=== PATIENT | female | born 1960 | race Caucasian/White ===

== ENCOUNTER → 2022-09-01 10:11 | Outpatient (BNVA) | payer MEDICARE, MEDICAID, SELFPAY | PROVIDERS: PCP Family Medicine; Visit Provider Physician Assistant | DX: M53.3 Sacrococcygeal disorders, not elsewhere classified (principal); G89.29 Other chronic pain | CPT/HCPCS: 99202 ==

== ENCOUNTER → 2022-10-11 11:15 | Outpatient (BNVA) | payer MEDICARE, MEDICAID, SELFPAY | PROVIDERS: PCP Family Medicine; Visit Provider Anesthesiology | DX: G89.4 Chronic pain syndrome (principal); M53.3 Sacrococcygeal disorders, not elsewhere classified; Z79.891 Long term (current) use of opiate analgesic; Z98.1 Arthrodesis status | CPT/HCPCS: 99202 ==

== ENCOUNTER 2022-12-18 13:53 | Outpatient (AMB) | payer MEDICARE, MEDICAID, SELFPAY ==
--- NOTE | 2022-12-18 13:56 | MHC.OFFVIS ---
Intake Vital Signs 12/18/22 13:57 Height 5 ft 9 in Weight 258 lb BMI 38.1 BP 108/60 Blood Pressure Location Lt brachial Position Sitting Respiration 16 Pulse 84 Pulse Source Pulse Oximeter Pulse Oximetry (%) 97 Oxygen Delivery Method Room Air Intake Visit Reasons: Pain Pump Procedure Discussion Allergies Penicillins Allergy (Severe, Verified 12/18/22 14:03) Anxiety citalopram Allergy (Intermediate, Verified 12/18/22 14:03) Confusion codeine Allergy (Intermediate, Verified 12/18/22 14:03) Stomach Upset duloxetine [From Cymbalta] Allergy (Intermediate, Verified 12/18/22 14:03) Vomiting gabapentin Allergy (Intermediate, Verified 12/18/22 14:03) Confusion levofloxacin [From Levaquin] Allergy (Intermediate, Verified 12/18/22 14:03) Vomiting meloxicam [From Mobic] Allergy (Intermediate, Verified 12/18/22 14:03) Vomiting nabumetone Allergy (Intermediate, Verified 12/18/22 14:03) Diarrhea prednisone Allergy (Intermediate, Verified 12/18/22 14:03) Insomnia tramadol [From Ultram] Allergy (Intermediate, Verified 12/18/22 14:03) Vomiting vancomycin Allergy (Intermediate, Verified 12/18/22 14:03) Swelling atorvastatin [From Lipitor] Allergy (Mild, Verified 12/18/22 14:03) Swelling lamotrigine Allergy (Mild, Verified 12/18/22 14:03) Dizziness trazadone Adverse Reaction (Mild, Uncoded 09/01/22 10:32) Fatigued HPI HPI Comments History of Present Illness Details Nathalia is again in my office and again prolonged and difficult conversation ensued. The patient was evaluated by psychology and she was found to be appropriate to do intrathecal drug delivery system pain pump. She is on exuberant doses of the opioid medications therefore I gave her options of the trials. I offered her to stop all her medications for few days and have opioid trial versus try nonopioid medications 1st. I offered her Prialt, baclofen, bupivacaine, clonidine. I described her side effects and complications of the each medication. She is very hesitant to consider which medication she would go with the trial, she would like to research intrathecal medications on her own. Meanwhile she is asking me to try oral baclofen to relieve spastic sensations in her bilateral lower extremities. I started her on baclofen 10 mg t.i.d.. She will give me a call and we will make the decision known to us. After that we will schedule her for the trial. . Prior: 61 years old female who presented in my office with a referral from neuro surgery.? She reports pain on the lower back on the left side as well as numbness sensation in bilateral feet.? She reports that her pain condition started in 2003 when she fell down on stairs at home.? Evaluation and cause of her pain was established as sacroiliitis.? Since then patient was through many different facilities and many different modalities to treat her pain.? She had physical therapy and pool therapy to treat this pain she went for chiropractic manipulation and was treated with 5 different chiropractors, she reported all of them increase her pain.? She had to apply for disability because of her pain.? She had after that several attempts of physical therapy.? She had about 20 steroid injections in [facility] and [place] apparently those injections were done to her right hip.? 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 in 2015.? She had spinal cord stimulator trial and implantation at [facility] it was removed 1 year after a insertion.? She had SI joint fusion formed in 2016 and was diagnosed with failed the side fusion she had revision of the SI joint fusion in 2017 2018 and removal of spinal cord stimulator.? She tried cryotherapy for her pain.? She tried psychotherapy for her pain including cognitive behavioral therapy and coping techniques for pain.? Through those years she remained on high doses of the opioid medications.? Originally she was on 75 micro g of fentanyl patch and 120 mg of oxycodone a day.? She reported that she was very comfortable on that dosage of the opioids.? She insisted on that this does was started on her after fusion surgery.? Currently she is under care of primary care physician who is prescribing her a taper of the opioids because she is uncomfortable to prescribe her current doses. Her past medical history significant for AFib dysrhythmia ovarian cyst and menstrual dysfunction.? Her past surgical history significant for SI joint fusion 2017 in 2018.? Hip replacement in 2015.? Hospitalized for pain in August of 2022. Review of Systems Const All systems reviewed & are unremarkable except as noted in HPI and below ENT Reports Normal hearing present Neuro Reports Normal hearing present, Denies Abnormal speech present, Denies confusion and Denies Sensory deficit (Neuro) Psych Denies confusion Physical Exam Vital Signs: Last Vital Signs Pulse 84 12/18/22 13:57 Resp 16 12/18/22 13:57 BP 108/60 12/18/22 13:57 Pulse Ox 97 12/18/22 13:57 Oxygen Delivery Method Room Air 12/18/22 13:57 BMI result Body Mass Index 38.1 Const General: no acute distress; No confusion Nutritional Appearance: obese morbidly obese Orientation/consciousness: patient oriented x3 and No confusion Eyes General: appearance normal, both eyes and all related structures Pupils: Equal, round and reactive pupils present EOM: EOMs intact bilaterally Neck Neck: Yes full ROM Chest Chest palpation & inspection: normal inspection of the chest Resp Effort & Inspection: normal respiratory effort, able to speak in complete sentences, normal respiratory pattern, no audible wheezes and no cough Cardio Jugular venous distension: no JVD GI Inspection: Yes normal to inspection Back/Spine/Pelvis Other: She has extensive scars in the projection of left sacroiliac joint evident of previous fusion. Neuro General: patient oriented x3, gait normal and No confusion Cranial nerves: Yes CN's II-XII intact bilaterally, Yes Equal, round and reactive pupils present, Yes Normal hearing present and Yes Ability to bilaterally elevate shoulders present Speech: No Abnormal speech present Gait exam (Neuro): Normal gait present Motor exam (neuro): 5/5 motor strength present throughout Sensory Exam: No Sensory deficit (Neuro) Extrem General: No pedal edema Psych Speech and movement: Normal speech and movement present Affect: normal affect Attitude: cooperative Thought process: Normal thought process present Thought content: Normal thought content present Insight: Good insight present (Psych) Judgement: Good judgement present (Psych) Assessment & Plan Assessment & Plan (1) Chronic SI joint pain: Code(s): M53.3 - Sacrococcygeal disorders, not elsewhere classified; G89.29 - Other chronic pain (2) Status post fusion of sacroiliac joint: Code(s): Z98.1 - Arthrodesis status (3) Chronic pain syndrome: Code(s): G89.4 - Chronic pain syndrome (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 Most likely this is the source of her pain due to opioid induced hyperalgesia. There is no evidence of hardware fracture. She admitted herself that she was started on exuberant doses of the opioid medications immediately after 1st SI joint fusion. She went for psychological evaluation and she was approved for the trial. I will start her on baclofen on her request. I will be waiting for her to make a decision which medication she would like to go for with the trial. 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
[2022-12-18 13:57] VITALS: BP 108/60; PULSE 84; RESP 16; O2SAT 97; BMI 38.1
== END 2022-12-18 14:42 | disposition home or self-care (01) ==
PROVIDERS: PCP Family Medicine; Visit Provider Anesthesiology
DX: G89.4 Chronic pain syndrome (principal); M53.3 Sacrococcygeal disorders, not elsewhere classified; Z98.1 Arthrodesis status; Z79.891 Long term (current) use of opiate analgesic
CPT/HCPCS: 99214

== ENCOUNTER → 2022-12-18 13:53 | Outpatient (BNVA) | payer MEDICARE, MEDICAID, SELFPAY | PROVIDERS: PCP Family Medicine; Visit Provider Anesthesiology | DX: M53.3 Sacrococcygeal disorders, not elsewhere classified (principal); G89.4 Chronic pain syndrome; Z98.1 Arthrodesis status; Z79.891 Long term (current) use of opiate analgesic | CPT/HCPCS: 99212 ==

== ENCOUNTER 2023-01-26 09:03 | Emergency (ER) | payer MEDICARE, MEDICAID, SELFPAY ==
--- NOTE | ~2023-01-26 | MR_ITS ---
MR LUMBAR SPINE WITHOUT CONTRAST CLINICAL INFORMATION: Increased pain. Incontinence of stool. Rule out cauda equina. COMPARISON: Lumbar spine MRI 02/06/2018. TECHNIQUE: MRI of the lumbar spine was obtained using routine sequences without contrast. FINDINGS: There are 5 nonrib-bearing lumbar-type vertebral bodies. There is grade 1 anterolisthesis of L4 on L5. Lumbar alignment is otherwise maintained. The vertebral body heights are preserved. There is moderate to severe disc volume loss at L3-L4 and there is moderate disc volume loss at L5-S1. There are multilevel endplate osteophytes. There are Modic type I and Modic type II endplate signal changes at L3-L4 and there are Modic type II endplate signal changes at L4-L5. Modic type I endplate signal changes at T12-L1. Conus terminates at the L1 level. Small simple left renal cyst for which no further imaging follow-up is warranted. There is paraspinal muscular atrophy bilaterally. There are left SI joint screws. L1-L2: Disc contour is normal. No central canal stenosis and no foraminal stenosis. L2-L3: There is a diffuse annular disc bulge and there is moderate bilateral facet arthropathy and ligamentum flavum thickening. There is no central canal stenosis and there is no foraminal stenosis. L3-L4: Diffuse annular disc bulge the superimposed similar right paracentral disc protrusion that compresses the traversing right L4 nerve root within the right subarticular zone and that results in mild to moderate central canal stenosis. A left lateral disc osteophyte protrusion results in similar mass effect on the extraforaminal left L3 nerve root. L4-L5: Slight grade 1 anterolisthesis. Severe bilateral hypertrophic facet arthropathy. Diffuse disc osteophyte complex. Previously seen central disc protrusion has nearly completely resorbed. Disc osteophyte and facet arthropathy result in similar moderate bilateral foraminal stenosis with mild mass effect on the exiting nerve roots bilaterally. L5-S1: Diffuse disc osteophyte complex and moderate bilateral facet arthropathy. Disc osteophyte contacts the extraforaminal L5 nerve roots bilaterally which is unchanged. MR/MR lumbar spine wo con IMPRESSION: - At L3-L4, there is a similar right paracentral disc protrusion that compresses the traversing right L4 nerve root within the right subarticular zone and that results in mild to moderate central canal stenosis. A left lateral disc osteophyte protrusion results in similar mass effect on the extraforaminal left L3 nerve root. - At L4-L5, the previously seen central disc protrusion has nearly completely resorbed. Grade 1 anterolisthesis and multifactorial degenerative changes at L4-L5 result in similar moderate bilateral foraminal stenosis with mild mass effect on the exiting nerve roots bilaterally. - At L5-S1, a diffuse disc osteophyte complex contacts the extraforaminal L5 nerve roots bilaterally which is unchanged.
--- NOTE | ~2023-01-26 | XR_ITS ---
EXAMINATION: XR SACROILIAC JOINTS CLINICAL INFORMATION: Fall, increased pain COMPARISON: None available. TECHNIQUE: 3 views of the sacroiliac joints FINDINGS: Fixating hardware left SI joint. Asymmetric inferior right SI sclerosis. Partial visualization right total hip replacement. Left hip joint without significant narrowing. Bony pelvis appears intact. Degenerative changes lower lumbar spine. XR/XR sacroiliac joint min 3V IMPRESSION: No acute bony pathology. Asymmetric inferior right SI sclerosis.
[2023-01-26 09:05] VITALS: BP 130/63; PULSE 85; RESP 18; TEMP 36.9; O2SAT 96; BMI 35.4
--- NOTE | 2023-01-26 10:16 | ED.GENADULT ---
HPI - General Adult General Chief complaint: General Medical Stated complaint: SI Joint Pain Time Seen by Provider: 01/26/23 10:04 Source: patient Mode of arrival: ambulatory Limitations: no limitations History of Present Illness HPI narrative: Patient is a 62-year-old female with history of chronic SI joint pain, failed SI joint fusion currently on 20mg oxycodone and a 75mcg fentanyl patch followed by pain management presenting to the emergency department with complaint of acute exacerbation of SI joint pain. States pain is radiating down right leg and reports right leg is numb. Reports one episode of bowel incontinence last night. Last saw pain management on 12/18 at which time she was started on Baclofen. Patient states she is not currently taking this as she feels it increased her pain. She reports a fall approximately 1.5 months ago with increased pain since that time and denies imaging following that injury. Denies fevers. Denies dysuira, urinary frequency, or other urinary symptoms. Patient specifically requesting admission for pain control. MD complaint: back pain Onset (ago): week(s) Location: back Radiation: extremity Severity: severe Severity scale (1-10): >10 Quality: burning Pain Consistency: constant Relieving factors: none Exacerbating factors: movement Associated symptoms: other (Paresthesias, bowel incontinence) Treatments prior to arrival: other (Oxycodone, fentanyl) Related Data Home Medications Medication Instructions Recorded Confirmed diltiazem HCl 180 mg mg PO 09/01/22 capsule,extended release 24 hr fentanyl 75 mcg/hr transdermal topical 09/01/22 patch metoprolol succinate 200 mg mg PO 09/01/22 tablet,extended release 24 hr omeprazole 20 mg capsule,delayed mg PO 09/01/22 release oxycodone 20 mg tablet mg PO 09/01/22 pravastatin 80 mg tablet mg PO 09/01/22 Previous Rx's Medication Instructions Recorded baclofen 10 mg tablet 10 mg PO TID 30 days #90 tabs 12/18/22 Allergies Allergy/AdvReac Type Severity Reaction Status Date / Time Penicillins Allergy Severe Anxiety Verified 12/18/22 14:03 citalopram Allergy Intermediate Confusion Verified 12/18/22 14:03 codeine Allergy Intermediate Stomach Verified 12/18/22 14:03 Upset duloxetine [From Cymbalta] Allergy Intermediate Vomiting Verified 12/18/22 14:03 gabapentin Allergy Intermediate Confusion Verified 12/18/22 14:03 levofloxacin [From Levaquin] Allergy Intermediate Vomiting Verified 12/18/22 14:03 meloxicam [From Mobic] Allergy Intermediate Vomiting Verified 12/18/22 14:03 nabumetone Allergy Intermediate Diarrhea Verified 12/18/22 14:03 prednisone Allergy Intermediate Insomnia Verified 12/18/22 14:03 tramadol [From Ultram] Allergy Intermediate Vomiting Verified 12/18/22 14:03 vancomycin Allergy Intermediate Swelling Verified 12/18/22 14:03 atorvastatin [From Lipitor] Allergy Mild Swelling Verified 12/18/22 14:03 lamotrigine Allergy Mild Dizziness Verified 12/18/22 14:03 trazadone AdvReac Mild Fatigued Uncoded 09/01/22 10:32 Review of Systems Review of Systems: As per HPI. Yes all other systems are reviewed and are negative Constitutional: Constitutional: Reports as per HPI [facility] Social History Social History Smoked in Last 30 Days: No Use of substances other than those prescribed or required for medical reasons: No Advance Directives: No Advance Directives Information Provided: Yes Physical Exam ED Vital Signs: Vital Signs - 24 hr 01/26/23 09:05 01/26/23 11:01 01/26/23 13:47 Temperature 98.4 F Pulse Rate 85 67 78 Respiratory Rate 18 20 18 Blood Pressure 130/63 145/86 H 137/83 Pulse Oximetry 96 97 98 Oxygen Delivery Method Room Air Room Air Room Air BMI result Body Mass Index 35.4 Vital signs have been reviewed and appear to be correct. Blood pressure normal. Heart rate normal. Respiratory rate normal. Temperature normal. Oxygen saturation normal. Const General: cooperative, healthy appearing and no acute distress Orientation/consciousness: oriented to person, oriented to place, oriented to time and patient oriented x3 Limitations: no limitations [facility] Head: Yes normocephalic and Yes atraumatic Ears: external ears normal General nose exam: Normal external nose present Face and sinus: Yes face symmetric Mouth: oropharynx normal and moist mucous membranes Throat: Yes uvula midline Eyes Pupils: Equal, round and reactive pupils present Neck Neck: Yes normal visual inspection, Yes no meningeal signs and Yes supple Resp Effort & Inspection: normal respiratory effort and able to speak in complete sentences Auscultation: clear to auscultation bilaterally Cardio Rate: regular rate Rhythm: regular rhythm Heart sounds: S1 normal heart sound present and S2 normal heart sound present GI Palpation (GI): Soft to palpation and nontender Auscultation: normoactive bowel sounds General: Yes no CVA tenderness Back/Spine/Pelvis Back: no CVA tenderness Cervical Spine: normal cervical lordosis and cervical ROM normal Thoracic/Lumbar Spine: Thoracic/lumbar spine scar(s), pain with thoraco-lumbar ROM, thoraco-lumbar ROM limited with forward flexion, with lateral flexion to the right, with lateral flexion to the left, with rotation to the right and with rotation to the left, lumbar spinal tenderness at L1, at L2, at L3, at L4 and at L5 and straight leg raise positive bilateral Sacroiliac joints: bilaterally tender to palpation Sacrum: no erythema, no swelling and tenderness midline Skin General skin exam: elasticity normal and turgor normal Neuro General: oriented to person, oriented to place, oriented to time, patient oriented x3, tone normal, moves all extremities, Normal light touch and pain sensation, no meningeal signs, no focal motor deficits, CN's II-XI intact bilaterally and deep tendon reflexes 2+ bilaterally Cranial nerves: Yes Equal, round and reactive pupils present Cognition (Neuro): normal cognition Motor exam (neuro): Abnormal motor strength present (2/5 strength will all ROM bilateral LEs) bilateral lower extremity Sensory Exam: Normal double simultaneous stimulation for sensation Extrem General: Yes full ROM, Yes no pedal edema and Yes no calf tenderness Psych Mental Status: mental status grossly normal Affect: normal affect Thought process: Normal thought process present Medications Administered Discontinued Medications Generic Name Dose Route Start Last Admin Trade Name Freq PRN Reason Stop Dose Admin Hydromorphone HCl 1 mg 01/26/23 10:27 01/26/23 10:59 Hydromorphone Hcl 1 Mg/Ml Syringe IVPUSH 01/26/23 10:28 1 mg ONCE ONE Administration Protocol Hydromorphone HCl 1 mg 01/26/23 11:44 01/26/23 11:54 Hydromorphone Hcl 1 Mg/Ml Syringe IVPUSH 01/26/23 11:45 1 mg ONCE ONE Administration Protocol Hydromorphone HCl 1 mg 01/26/23 13:19 01/26/23 13:50 Hydromorphone Hcl 1 Mg/Ml Syringe IVPUSH 01/26/23 13:20 1 mg ONCE ONE Administration Protocol Lorazepam 1 mg 01/26/23 13:55 01/26/23 14:23 Lorazepam 2 Mg/Ml Vial IVPUSH 01/26/23 13:56 1 mg ONCE ONE Administration Ondansetron HCl 4 mg 01/26/23 10:28 01/26/23 10:59 Ondansetron Hcl 4 Mg/2 Ml Vial IVPUSH 01/26/23 10:29 4 mg ONCE ONE Administration Medical Decision Making Medical Decision Making [facility] Narrative: Patient is a 62-year-old female with history of chronic SI joint pain, failed SI joint fusion currently on 20mg oxycodone and a 75mcg fentanyl patch followed by pain management presenting to the emergency department with complaint of acute exacerbation of SI joint pain. On exam patient is awake, A+Ox3, VS WNL, afebrile, normal neurological exam without focal deficits, diffuse tenderness over bilateral SI joints, . Given reported symptoms and physical exam findings, initial differential includes cord compression, cauda equina, avascular necrosis, harware fracture. Less likely spinal epidural abscess. Case discussed with Dr. Romero who agrees with plan for MRI. 11:44 Patient denies any relief of pain from Dilaudid, will order additional dose, MRI ordered. No leukocytosis, ESR and CRP are within normal limits. 12:00 RN reporting that when in room to perform MRI screening, patient stating she not be able to complete MRI due to claustrophobia. Reporting that she had an open MRI one month ago in [place], in unsure where, but that it was prior to her fall. States that she feels she would be able to complete MRI if medicated with Ativan prior. No acute pathology on x-ray. No evidence of infection on urinalysis. 13:55 received call from MRI but they are ready to take patient, lorazepam ordered No findings on MRI concerning for cord compression or cauda equina, patient updated on results. Patient continues to specifically request inpatient admission for pain control, states that her level of pain is interfering with her activities of daily living. Discussed case with hospitalist, Dr. Bragg, who feels that patient does not meet admission criteria. Patient offered PT eval and case management involvement which she declined. Spoke with patient's pain management provider, , who feels that patient's pain level is not an indication for admission, and that symptoms are likely related to opioid induced hyperalgesia as no acute cause of pain was determined in the ED today. Patient expresses frustration that she was previously on higher doses of opioid pain medications that worked well at controlling her pain levels and that her current primary care provider is not willing to prescribe those doses of medications. Discussed with patient the possibility of seeking a new primary care provider and patient provided with names of several area providers to contact. Patient is agreeable to discharge home and will work at contacting new potential primary care providers outpatient. Strict return precautions discussed with patient at bedside. Patient verbalized understanding of and agreement with plan. Differential Diagnosis Differential Diagnoses: The differential diagnosis associated with the presentation includes As per MDM. Admission/Observation Consideration of admission/observation: Escalation of care including admission/observation considered Consult Healthcare Provider Management of the patient was discussed with: Hospitalist (Dr. Bragg) and Residence Manager (Dr. Jack) Lab Data [facility] Lab Attestation statement: I reviewed the patient's lab results. As per MDM. 01/26/23 10:52 01/26/23 10:52 Labs: Lab Results 01/26/23 Range/Units 10:52 WBC 8.5 (4.8-10.8) X10*3/uL RBC 5.58 H (4.20-5.50) X10*6/uL Hgb 14.3 (12.0-16.0) g/dl Hct 45.5 (37.0-47.0) % MCV 81.5 (80.0-98.0) fL MCH 25.6 L (27.0-33.0) pg MCHC 31.4 (31.0-35.0) g/dl RDW 16.5 H (11.0-16.0) % Plt Count 213 (160-400) X10*3/uL MPV 9.9 (9.4-12.3) fL Immature Gran % (Auto) 0.2 (0.0-0.4) % Neut % (Auto) 70.0 (45-73) % Lymph % (Auto) 23.4 (20-40) % [place] % (Auto) 4.6 (2-11) % Eos % (Auto) 1.3 (0-4) % Baso % (Auto) 0.5 (0-2) % Lymph # (Auto) 2.0 (1.2-4.9) X10*3/uL [place] # (Auto) 0.4 (0.1-1.2) X10*3/uL Eos # (Auto) 0.1 (0.0-0.4) X10*3/uL Baso # (Auto) 0.0 (0.0-0.2) X10*3/uL Abs Immat Gran (auto) 0.02 (0.00-0.03) X10*3/uL Absolute Neuts (auto) 6.0 (2.0-8.3) x10*3/uL Absolute Nucleated RBC 0.000 (0.0-0.012) X10*3/uL Nucleated RBC % (auto) 0.0 (0.0-0.2) /100WBC ESR 10 (0-20) MM/HR Sodium 139 (135-145) mmol/L Potassium 4.5 (3.3-5.1) mmol/L Chloride 104 (96-108) mmol/L Carbon Dioxide 26 (22-29) mmol/L Anion Gap 14 (12-20) BUN 7 L (9-16) mg/dL Creatinine 0.76 (0.5-1.4) mg/dL Estim Creat Clear Calc 103.4 Estimated GFR > 60 Random Glucose 126 H (60-115) mg/dL Calcium 9.6 (8.4-10.2) mg/dL Total Bilirubin 0.4 (0.0-1.0) mg/dL AST 13 (5-31) U/L ALT 11 (0-31) U/L Alkaline Phosphatase 65 (39-117) U/L C-Reactive Protein 0.43 (< or = 0.50) mg/dL Total Protein 8.0 (6.5-8.0) g/dL Albumin 4.4 (3.5-5.0) g/dL Urine Color Yellow Urine Appearance Clear Urine pH 6.5 (5.0-9.0) Ur Specific [place] 1.010 (1.005-1.025) Urine Protein Negative (Neg-Trace) mg/dL Urine Glucose (UA) Negative (Negative) mg/dL Urine Ketones Negative (Negative) mg/dL Urine Blood Negative (Negative) Urine Nitrite Negative (Negative) Ur Leukocyte Esterase Small (1+) H (Negative) Urine RBC 0-2 (0-2) /HPF Urine WBC 0-5 (0-5) /HPF Ur Squamous Epith Cells 0-2 (0-2) /HPF Urine Bacteria Trace (None Seen) Hyaline Casts 0-2 (0-2) /LPF Independent Interpretation I performed an independent interpretation of an: Plain X-Ray Interpretation: No acute pathology on x-ray. Radiology Impression Discussion of test interpretation with radiology: I have reviewed the radiologist's reading. Radiologist Impression: XR/XR sacroiliac joint min 3V IMPRESSION: No acute bony pathology. Asymmetric inferior right SI sclerosis. MR/MR lumbar spine wo con IMPRESSION: - At L3-L4, there is a similar right paracentral disc protrusion that compresses the traversing right L4 nerve root within the right subarticular zone and that results in mild to moderate central canal stenosis. A left lateral disc osteophyte protrusion results in similar mass effect on the extraforaminal left L3 nerve root. - At L4-L5, the previously seen central disc protrusion has nearly completely resorbed. Grade 1 anterolisthesis and multifactorial degenerative changes at L4-L5 result in similar moderate bilateral foraminal stenosis with mild mass effect on the exiting nerve roots bilaterally. - At L5-S1, a diffuse disc osteophyte complex contacts the extraforaminal L5 nerve roots bilaterally which is unchanged. 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 Your evaluation including blood work, urinalysis, x-ray, and MRI did not show evidence of any conditions requiring emergent treatment at this time. You were offered a physical therapy and case management evaluation which he declined. You were provided with a list of providers to contact to establish care with a new primary care provider. Return to the emergency department if you experience new or sudden onset weakness, numbness, tingling to your extremities, numbness or tingling to your groin, loss of bowel or bladder control, difficulty emptying bladder, fever 100.4F, persistent vomiting, or any other concerning symptoms. Please follow up with your pain management provider as well. Prescriptions: No Action metoprolol succinate 200 mg tablet extended release 24 hr PO oxycodone 20 mg tablet PO diltiazem HCl 180 mg capsule,extended release 24hr PO fentanyl 75 mcg/hr patch 72 hour topical omeprazole 20 mg capsule,delayed release(DR/EC) PO pravastatin 80 mg tablet PO baclofen 10 mg tablet 10 mg PO TID 30 Days Qty: 90 6RF
[2023-01-26] MEDS: ondansetron HCL 4 MG/2 ML VIAL IVPUSH (10:59)
[2023-01-26] MEDS: HYDROmorphone HCl 1 MG/ML SYRINGE IVPUSH ×3 (10:59→13:50)
--- NOTE | 2023-01-26 11:00 | PC.NURSE ---
pt is alert and oriented, skin pwd, respirations even and unlabored, pt reports chronic left sided si joint pain for years, pt reports pain at 10/10, pt ambulates with a walker at baseline but this morning was not able to walk, also states that she was incontinent of bowel and urine last night, vs stable
[2023-01-26 11:01] VITALS: BP 145/86; PULSE 67; RESP 20; O2SAT 97
[2023-01-26 11:01] LABS: MANUAL DIFF FLAG NO
[2023-01-26 11:03] LABS: Appearance Urine Clear; Color Urine Yellow; Glucose Urine UA Negative (Negative); Leukocyte Esterase Urine Small (1+) (Negative); Nitrite Urine Negative (Negative); PH 6.5 (5.0-9.0); UMIC TRIGGER UACC YES; Urine Blood Negative (Negative); Urine Ketones Negative (Negative); Urine Protein Negative (Neg-Trace)
[2023-01-26 11:05] LABS: Basophils Percent Auto 0.5 % (0-2); Eosinophils Absolute Auto 0.1 X10*3/uL (0.0-0.4); Eosinophils Percent Auto 1.3 % (0-4); Hematocrit 45.5 % (37.0-47.0); Hemoglobin 14.3 g/dl (12.0-16.0); Imm Gran Abs Auto 0.02 X10*3/uL (0.00-0.03); Imm Gran Pct Auto 0.2 % (0.0-0.4); Lymphocytes Percent Auto 23.4 % (20-40); Mean Corpuscular HGB Conc 31.4 g/dl (31.0-35.0); Mean Corpuscular Hemoglobin 25.6 pg (27.0-33.0); Mean Corpuscular Volume 81.5 fL (80.0-98.0); Mean Platelet Volume 9.9 fL (9.4-12.3); Monocytes Absolute Auto 0.4 X10*3/uL (0.1-1.2); Monocytes Percent Auto 4.6 % (2-11); Platelet Count 213 X10*3/uL (160-400); Red Blood Count 5.58 X10*6/uL (4.20-5.50); Red Cell Distribution Width 16.5 % (11.0-16.0); White Blood Count 8.5 X10*3/uL (4.8-10.8)
[2023-01-26 11:15] LABS: Bacteria Urine Trace (None Seen); Hyaline Casts Urine 0-2 /LPF (0-2); RBC Urine 0-2 /HPF (0-2); Squamous Epithelial Cell Urine 0-2 /HPF (0-2); UACC Culture Trigger YES; WBC Urine 0-5 /HPF (0-5)
[2023-01-26 11:20] LABS: Alanine Aminotransferase 11 U/L (0-31); Albumin Level 4.4 g/dL (3.5-5.0); Alkaline Phosphatase 65 U/L (39-117); Anion Gap 14 (12-20); Aspartate Amino Transferase 13 U/L (5-31); Bilirubin Total 0.4 mg/dL (0.0-1.0); Blood Urea Nitrogen 7 mg/dL (9-16); C Reactive Protein 0.43 mg/dL (< or = 0.50); Calcium 9.6 mg/dL (8.4-10.2); Carbon Dioxide 26 mmol/L (22-29); Chloride 104 mmol/L (96-108); Creatinine Clr Calc Pharmacy 103.4; Estimated Glomerular Filt Rate > 60; Glucose Random 126 mg/dL (60-115); Potassium 4.5 mmol/L (3.3-5.1); Sodium 139 mmol/L (135-145)
[2023-01-26 11:44] LABS: Erythrocyte Sedimentation Rate 10 MM/HR (0-20)
--- NOTE | 2023-01-26 11:46 | PC.NURSE ---
pt denies improvement after the medication pain still at 10/10 and having nausea
--- NOTE | 2023-01-26 12:00 | PC.NURSE ---
pt states that she is claustrophobic and is not sure if she will be able to lay still to get the test done, spoke to the pt about possible pre medication like Ativan for exhale but even with she might be able to get it done, that she had an open MRI done about two months ago somewhere is [place] but does not remember then name of the office.
[2023-01-26 13:47] VITALS: BP 137/83; PULSE 78; RESP 18; O2SAT 98
[2023-01-26] MEDS: LORazepam 2 MG/ML VIAL 1 MG IVPUSH (14:23)
== END 2023-01-26 19:37 | disposition home or self-care (01) ==
PROVIDERS: Registered Nurse Emergency; Emergency Provider Emergency Medicine Emergency Medical Services; PCP Family Medicine
DX: M79.604 Pain in right leg (principal); R20.2 Paresthesia of skin; M79.10 Myalgia, unspecified site; R15.9 Full incontinence of feces; M54.50 Low back pain, unspecified; Z79.891 Long term (current) use of opiate analgesic; Z79.899 Other long term (current) drug therapy
CPT/HCPCS: 36415; 72148; 72202; 80053; 81001; 81003; 85025; 85652; 86140; 87086; 96374; 96375; 96376; 99284; 99285; J1170; J2060; J2405

== ENCOUNTER 2023-01-28 05:34 | Emergency (ER) | payer MEDICARE, MEDICAID, SELFPAY ==
[2023-01-28 05:50] VITALS: BP 125/76; PULSE 77; RESP 18; TEMP 36.9; O2SAT 97; BMI 35.7
--- NOTE | 2023-01-28 06:33 | ED_ITS ---
HPI - General Adult General Chief complaint: Back Pain/Injury Stated complaint: fall in past, post surgery pains Time Seen by Provider: 01/28/23 06:31 Source: patient Mode of arrival: ambulatory Limitations: no limitations History of Present Illness HPI narrative: Patient is a 62-year-old female with history of chronic back pain on long-term opioid pain management, history of failed SI joint fusion presenting to the emergency department with complaint worsening low back pain and stating that she is unable to perform her ADLs at home due to her pain. Patient was seen in this emergency department on 01/26/2023, and refused PT evaluation and case management. Patient returns today stating that she is now interested in PT evaluation and case management involvement. States she has not taken her prescribed oxycodone since 8:00 p.m. last night. Denies any falls or other injury since evaluation on 01/26. MD complaint: difficulty with ADLs due to chronic back pain Onset (ago): year(s) Location: back Radiation: non-radiation Severity: severe Severity scale (1-10): >10 Quality: aching and sharp Pain Consistency: constant Relieving factors: none Exacerbating factors: movement Associated symptoms: denies other symptoms Treatments prior to arrival: other Related Data Home Medications Medication Instructions Recorded Confirmed diltiazem HCl 180 mg 180 mg PO BEDTIME 09/01/22 01/28/23 capsule,extended release 24 hr fentanyl 75 mcg/hr transdermal 75 mcg topical Q72H 09/01/22 01/28/23 patch metoprolol succinate 200 mg 200 mg PO BEDTIME 09/01/22 01/28/23 tablet,extended release 24 hr omeprazole 20 mg capsule,delayed 20 mg PO BEDTIME 09/01/22 01/28/23 release oxycodone 20 mg tablet 20 mg PO Q4H 09/01/22 01/28/23 baclofen 10 mg tablet 20 mg PO BEDTIME 01/28/23 01/28/23 docusate sodium 100 mg capsule 300 mg PO BEDTIME 01/28/23 01/28/23 rivaroxaban 20 mg tablet (Xarelto) 20 mg PO DAILY@1700 01/28/23 01/28/23 Allergies Allergy/AdvReac Type Severity Reaction Status Date / Time Penicillins Allergy Severe Anxiety Verified 01/28/23 06:17 citalopram Allergy Intermediate Confusion Verified 01/28/23 06:17 codeine Allergy Intermediate Stomach Verified 01/28/23 06:17 Upset duloxetine [From Cymbalta] Allergy Intermediate Vomiting Verified 01/28/23 06:17 gabapentin Allergy Intermediate Confusion Verified 01/28/23 06:17 levofloxacin [From Levaquin] Allergy Intermediate Vomiting Verified 01/28/23 06:17 meloxicam [From Mobic] Allergy Intermediate Vomiting Verified 01/28/23 06:17 nabumetone Allergy Intermediate Diarrhea Verified 01/28/23 06:17 prednisone Allergy Intermediate Insomnia Verified 01/28/23 06:17 tramadol [From Ultram] Allergy Intermediate Vomiting Verified 01/28/23 06:17 vancomycin Allergy Intermediate Swelling Verified 01/28/23 06:17 atorvastatin [From Lipitor] Allergy Mild Swelling Verified 01/28/23 06:17 lamotrigine Allergy Mild Dizziness Verified 01/28/23 06:17 trazadone AdvReac Mild Fatigued Uncoded 09/01/22 10:32 Review of Systems Review of Systems: As per HPI. Yes all other systems are reviewed and are negative Constitutional: Constitutional: [facility] Social History Social History Alcohol intake: never Smoked in Last 30 Days: No Use of substances other than those prescribed or required for medical reasons: No Advance Directives: Yes Advance Directives Information Provided: No Advance Directives on File: Yes Advance Directives Date on File: 01/29/23 Patient : No Physical Exam ED Vital Signs: Vital Signs - 24 hr 01/29/23 19:34 01/30/23 06:00 01/30/23 14:45 Temperature 97.0 F 97.7 F 98 F Pulse Rate 76 80 74 Respiratory Rate 18 18 18 Blood Pressure 158/78 H 116/84 124/78 Pulse Oximetry 99 98 100 Oxygen Delivery Method Room Air Room Air Room Air BMI result Body Mass Index 35.7 Vital signs have been reviewed and appear to be correct. Blood pressure normal. Heart rate normal. Respiratory rate normal. Temperature normal. Oxygen saturation normal. Const General: cooperative, healthy appearing and no acute distress Orientation/consciousness: oriented to person, oriented to place, oriented to time and patient oriented x3 Limitations: no limitations HENMT Head: Yes normocephalic and Yes atraumatic Ears: external ears normal General nose exam: Normal external nose present Face and sinus: Yes face symmetric Mouth: oropharynx normal and moist mucous membranes Throat: Yes uvula midline Eyes Pupils: Equal, round and reactive pupils present Neck Neck: Yes normal visual inspection, Yes no meningeal signs and Yes supple Resp Effort & Inspection: normal respiratory effort and able to speak in complete sentences Auscultation: clear to auscultation bilaterally Cardio Rate: regular rate Rhythm: regular rhythm Heart sounds: S1 normal heart sound present and S2 normal heart sound present GI Palpation (GI): Soft to palpation and nontender Auscultation: normoactive bowel sounds General: Yes no CVA tenderness Back/Spine/Pelvis Back: no CVA tenderness Cervical Spine: normal cervical lordosis and cervical ROM normal Thoracic/Lumbar Spine: Thoracic/lumbar spine scar(s), pain with thoraco-lumbar ROM, thoraco-lumbar ROM limited with forward flexion, with lateral flexion to the right, with lateral flexion to the left, with rotation to the right and with rotation to the left, No thoracic spinal tenderness, lumbar spinal tenderness at L1, at L2, at L3, at L4 and at L5 and straight leg raise positive bilateral Sacroiliac joints: bilaterally tender to palpation Sacrum: no erythema, no swelling and tenderness midline Skin General skin exam: elasticity normal and turgor normal Neuro General: oriented to person, oriented to place, oriented to time, patient oriented x3, tone normal, moves all extremities, no meningeal signs, no focal motor deficits, CN's II-XI intact bilaterally and deep tendon reflexes 2+ bilaterally Cranial nerves: Yes Equal, round and reactive pupils present Cognition (Neuro): normal cognition Motor exam (neuro): Abnormal motor strength present bilateral lower extremity Extrem General: Yes full ROM, Yes no pedal edema and Yes no calf tenderness Psych Mental Status: mental status grossly normal Affect: normal affect Thought process: Normal thought process present Course Course Course Narrative: 01/29/23--919-- physician observation continued. Vital signs stable. Patient complaining of persistent back pain despite 20 mg of oxycodone Q4 hours. Did receive dose at 0745AM. per pain management note patient is supposed to be on baclofen t.i.d., only scheduled for at night, will change order, and cancel double order of oxycodone. Pending PT eval/ Case Management recommendations 01/30/23--799--physician observation continued. Vital signs stable. Physical therapy evaluated patient yesterday and recommended rehab. Pending case management placement. -938--patient reporting left upper dental pain since yesterday, evaluated patient in overflow, poor dental disease with diffuse caries. Left upper molar with mild gingival swelling and tenderness. No fluctuance/induration or active drainage. Will initiate patient on Amoxicillin 500 mg t.i.d. x7 days >> patient refusing amoxicillin due to allergy of agitation. Changed to Ceftin 500 mg b.i.d. -1600--patient accepted to [facility] for STR at 6pm. Reevaluation(s) Reevaluation #1: Patient was requesting something else to help her sleep. She was previously given melatonin by myself and she states this did not help. I ordered a dose of trazodone and the patient states that she has an allergy to trazodone that includes a rash but this is not listed on her medication list. I agree to offer Benadryl instead. Time: 22:13 Medications Administered Generic Name Dose Route Start Last Admin Trade Name Freq PRN Reason Stop Dose Admin Baclofen 20 mg 01/29/23 09:30 01/30/23 15:16 Baclofen 20 Mg Tablet PO 20 mg TID TARA Administration Cefuroxime Axetil 500 mg 01/30/23 12:00 01/30/23 12:30 Cefuroxime Axetil 500 Mg Tablet PO 02/06/23 11:59 500 mg Q12H TARA Administration Diltiazem HCl 180 mg 01/28/23 21:00 01/29/23 20:25 Diltiazem Hcl Cd 180 Mg Cap.Er.24h PO 180 mg BEDTIME TARA Administration Protocol Docusate Sodium 300 mg 01/28/23 21:00 01/29/23 20:23 Docusate Sodium 100 Mg Capsule PO 300 mg BEDTIME TARA Administration Fentanyl 75 mcg 01/29/23 09:00 01/29/23 08:34 Fentanyl 75 Mcg Patch.Td72 TRANSDERMA 75 mcg Q72H TARA Administration Metoprolol Succinate 200 mg 01/28/23 21:00 01/29/23 20:22 Metoprolol Succinate Er 100 Mg Tab.Er.24h PO 200 mg BEDTIME TARA Administration Protocol Omeprazole 20 mg 01/28/23 21:00 01/29/23 20:25 Omeprazole 20 Mg Capsule.Dr PO 20 mg BEDTIME TARA Administration Oxycodone HCl 20 mg 01/29/23 20:36 01/30/23 12:30 Oxycodone Hcl Immed Release 5 Mg Tablet PO 20 mg Q4H PRN Administration Pain, Moderate(Pain Scale 4-6) Rivaroxaban 20 mg 01/29/23 17:00 01/29/23 17:41 Rivaroxaban 20 Mg Tablet PO 20 mg DAILY@1700 TARA Administration Discontinued Medications Generic Name Dose Route Start Last Admin Trade Name Freq PRN Reason Stop Dose Admin Baclofen 20 mg 01/28/23 21:00 01/28/23 20:25 Baclofen 20 Mg Tablet PO 20 mg BEDTIME TARA Administration Diphenhydramine HCl 50 mg 01/28/23 22:12 01/28/23 22:36 Diphenhydramine Hcl 25 Mg Capsule PO 01/28/23 22:13 50 mg ONCE ONE Administration Fentanyl 75 mcg 01/28/23 16:01 01/28/23 19:35 Fentanyl 75 Mcg Patch.Td72 TRANSDERMA 01/28/23 16:02 Not Given ONCE ONE Magnesium Hydroxide 15 ml 01/29/23 14:25 01/29/23 15:30 Milk Of Magnesia 30 Ml Oral.Susp PO 01/29/23 14:26 15 ml ONCE ONE Administration Melatonin 6 mg 01/28/23 19:46 01/28/23 20:17 Melatonin 3 Mg Tablet PO 01/28/23 19:47 6 mg ONCE ONE Administration Oxycodone HCl 20 mg 01/28/23 06:36 01/28/23 06:49 Oxycodone Hcl Er 10 Mg Tab.Er.12h PO 01/28/23 06:37 20 mg ONCE ONE Administration Oxycodone HCl 20 mg 01/28/23 14:00 01/29/23 08:00 Oxycodone Hcl Immed Release 5 Mg Tablet PO Not Given Q6H TARA Oxycodone HCl 20 mg 01/28/23 19:45 01/29/23 20:21 Oxycodone Hcl Immed Release 5 Mg Tablet PO 20 mg Q4H TARA Administration Oxycodone HCl 10 mg 01/29/23 05:45 01/29/23 05:52 Oxycodone Hcl Immed Release 5 Mg Tablet PO 01/29/23 05:46 10 mg ONCE ONE Administration Trazodone HCl 50 mg 01/28/23 21:57 01/28/23 23:51 Trazodone Hcl 50 Mg Tablet PO 01/28/23 21:58 Not Given ONCE ONE Medical Decision Making Medical Decision Making [facility] Narrative: Patient is a 62-year-old female with history of chronic back pain on long-term opioid pain management, history of failed SI joint fusion presenting to the emergency department with complaint worsening low back pain and stating that she is unable to perform her ADLs at home due to her pain. On exam patient is awake, A+Ox3, VS WNL, afebrile, normal neurological exam without focal deficits, physical exam findings as above. Given reported symptoms and physical exam findings, initial differential includes acute on chronic back pain. Unlikely cauda equina, cord compression, spinal epidural abscess, hardware malfunction. Given the patient was seen and evaluated here by this provider on 01/26/2023 with no evidence of acute conditions requiring emergent intervention and she denies any fall or other trauma since that time, feel additional imaging is not indicated. Discussed case with Dr. Asencio, attending MD, who agrees with this plan. Patient agreeable to this as well and has returned to the ED for PT evaluation and case management. Patient placed on physician observation and patient to be medicated with home pain meds. Differential Diagnosis Differential Diagnoses: The differential diagnosis associated with the presentation includes As per MDM. Consult Healthcare Provider Dr. Asencio Lab Data Labs: Lab Results 01/28/23 Range/Units 15:46 COVID-19 (TEVIN) Negative (Negative) COVID-19 Clin Com See Note External Record Review External record reviewed: Inpatient record, Office record and Outpatient record Tests considered The following testing was considered but not selected: Considered x-ray, CT, MRI however patient seen here on 01/26/23, had x-ray and MRI and denies any trauma since that time. Prescription Management I considered prescription management with: Pain Medication Chronic Conditions Patient?s care impacted by: Other (chronic back pain) Discharge Plan Discharge Clinical Impression: Chronic SI joint pain Patient Disposition: Still a Patient Prescriptions: No Action docusate sodium 100 mg Capsule 300 mg PO BEDTIME Xarelto 20 mg tablet 20 mg PO DAILY@1700 baclofen 10 mg tablet 20 mg PO BEDTIME metoprolol succinate 200 mg tablet extended release 24 hr 200 mg PO BEDTIME oxycodone 20 mg tablet 20 mg PO Q4H diltiazem HCl 180 mg capsule,extended release 24hr 180 mg PO BEDTIME fentanyl 75 mcg/hr patch 72 hour 75 mcg topical Q72H omeprazole 20 mg capsule,delayed release(DR/EC) 20 mg PO BEDTIME Referrals: [facility] [Outside]
--- NOTE | 2023-01-28 06:38 | PC.NURSE ---
Per provider, vitals Q8, pt is PT/CM
[2023-01-28] MEDS: oxyCODONE HCl ER 10 MG TAB.ER.12H 20 MG PO (06:49)
--- NOTE | 2023-01-28 07:19 | PC.NURSE ---
Report given to Tamir in overflow
[2023-01-28 08:09] VITALS: BP 109/65; PULSE 73; RESP 16; TEMP 36.3; O2SAT 97
[2023-01-28] MEDS: oxyCODONE HCl Immed Release 5 MG TABLET 20 MG PO ×3 (13:51→23:35)
[2023-01-28 14:00] VITALS: BP 108/56; PULSE 66; RESP 18; TEMP 35.9; O2SAT 95
--- NOTE | 2023-01-28 15:07 | MHC.CM.ED ---
Received case management consult from Donna PIRES. Patient was seen in the ER on 01/26 for similar symptoms. Nothing acute found. Patient returned to the ER today for exac of chronic pain. Work up essentially negative. Physical therapy eval pending. Met with patient in regards to discharge planning. 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 PCP verified as Cecilia Blackman. Patient recieved 2 Pfizer vaccines. Patient has a HCP listing her mother, Bernadette at her agent. Bernadette has a copy of patient's HCP. Patient has been to short term rehab in the past years ago but doesn't remember which facility. Patient upset that physical therapy not available before Monday 01/29. Patient also upset she will not be admitted. T/W explained patient doesn't meet Medicare regulations of inpatient level of stay. Donna PIRES met with patient to verify this info. [facility]: [facility]. Referrals made via [facility]. Continue to monitor for d/c needs.
--- NOTE | 2023-01-28 16:00 | MHC.EDTECH ---
THIS PCT ASSUMED CARE OF PT AT 1500 ,PT SITTING UP IN RECLINER CHAIR ,PT WAS WHEELED IN RECLINER CHAIR TO BATHROOM ,PATIENT IS A MAX ASST OF 2 TO STAND UP ,PT WAS OFFER BEDSIDE COMMODE ,BUT REFUSED SAID SHE CANT SIT ON THOSE ,PT REQUEST SOFT FOODS ATE 25 % ,AFTER DINNER PT WAS WHEELED IN RECLINER CHAIR TO BATHROOM WAS ASSISTED TO CHANGE INTO HOSPITAL PANTS THEN TO BED ,PT IS VERY UNCOMFORTABLE ASKING FOR SOMETHING TO HELP HER SLEEP ,CINTHIA TORIBIO AWARE .
[2023-01-28 16:23] LABS: COVID-19 Test Negative (Negative); IDNOW Serial# 9DB6401D
--- NOTE | 2023-01-28 16:48 | PHA.MEDREC ---
Pharmacy Consult ? Medication Reconciliation Pharmacy has completed the medication reconciliation. Spoke to patient at bedside, noted she had on her fentanyl patch currently and was due for the next one tomorrow AM around 0700. Patient takes most pills in the evening. She also noted she takes about three stool softeners nightly due to her opioid intake.
[2023-01-28] MEDS: Melatonin 3 MG TABLET 6 MG PO (20:17)
[2023-01-28] MEDS: Docusate Sodium 100 MG CAPSULE 300 MG PO (20:17)
[2023-01-28] MEDS: Omeprazole 20 MG CAPSULE.DR PO (20:17)
[2023-01-28] MEDS: dilTIAZem HCL CD 180 MG CAP.ER.24H PO (20:18)
[2023-01-28] MEDS: Rivaroxaban 20 MG TABLET PO (20:18)
[2023-01-28] MEDS: Metoprolol Succinate ER 100 MG TAB.ER.24H 200 MG PO (20:18)
[2023-01-28] MEDS: Baclofen 20 MG TABLET PO (20:25)
[2023-01-28 20:28] VITALS: BP 107/54; PULSE 66; RESP 20; TEMP 36.6; O2SAT 98
[2023-01-28] MEDS: diphenhydrAMINE HCL 25 MG CAPSULE 50 MG PO (22:36)
--- NOTE | 2023-01-28 22:46 | MHC.EDTECH ---
pt up was a max asst of 2 to recliner chair to bathroom ,void then back to bed .
--- NOTE | 2023-01-29 00:50 | PC.NURSE ---
Assumed care for patient. Patient c/o back pain which is chronic. Oxycodone scheduled for pain management. Patient asking for medication to sleep. Melatonin ordered, with no effect. Provider called and Daniall ordered. Patient resting comfortably at present.
[2023-01-29] MEDS: oxyCODONE HCl Immed Release 5 MG TABLET 20 MG PO ×5 (03:38→20:21)
[2023-01-29] MEDS: oxyCODONE HCl Immed Release 5 MG TABLET 10 MG PO (05:52)
[2023-01-29 05:59] VITALS: BP 117/60; PULSE 54; RESP 20; TEMP 35.7; O2SAT 98
[2023-01-29 08:00] VITALS: BP 115/69; PULSE 65; RESP 18; TEMP 36.4; O2SAT 99
[2023-01-29] MEDS: fentaNYL 75 MCG PATCH.TD72 TRANSDERMA (08:34)
--- NOTE | 2023-01-29 10:54 | MHC.CM.ED ---
Addendum entered by Maritza Torres 01/29/23 15:46: [facility], [facility], [facility], and [facility]. Patient accepts a bed at [facility]. HCP completed, signed and witnessed. Original given to patient. Copy placed in chart. MDS completed. Sent to [facility] and [facility]. Original Note: Patient remains in ER overflow. Physical therapy eval completed. Short term rehab is recommended. [facility] and [facility] do not have beds to offer at this time. Referral broadcasted within 15 miles of patient's home to see which facilities have beds available. Continue to monitor for d/c needs.
[2023-01-29 12:00] VITALS: BP 132/69; PULSE 71; RESP 18; TEMP 36.6; O2SAT 98
[2023-01-29 13:55] VITALS: BP 132/69; PULSE 76; RESP 18; TEMP 36.6; O2SAT 98
[2023-01-29] MEDS: Milk of Magnesia 30 ML ORAL.SUSP 15 ML PO (15:30)
[2023-01-29] MEDS: Rivaroxaban 20 MG TABLET PO (17:41)
--- NOTE | 2023-01-29 18:54 | PC.NURSE ---
Notified Sonny PIRES patient is possibly taking extra pain pills from her pocketbook will notify on coming nurse to watch her. Patient refused baclofen states it doesn't help.
[2023-01-29 19:34] VITALS: BP 158/78; PULSE 76; RESP 18; TEMP 36.1; O2SAT 99
[2023-01-29] MEDS: Metoprolol Succinate ER 100 MG TAB.ER.24H 200 MG PO (20:22)
[2023-01-29] MEDS: Docusate Sodium 100 MG CAPSULE 300 MG PO (20:23)
[2023-01-29] MEDS: dilTIAZem HCL CD 180 MG CAP.ER.24H PO (20:25)
[2023-01-29] MEDS: Omeprazole 20 MG CAPSULE.DR PO (20:25)
[2023-01-29] MEDS: Baclofen 20 MG TABLET PO (20:26)
--- NOTE | 2023-01-29 20:26 | MHC.EDTECH ---
Patient given new sheets and blanket
--- NOTE | 2023-01-29 21:54 | PC.NURSE ---
This RN assumed care at 1915. Previous shift RN reported that patient may be taking pills out of purse. This RN investigated and patient allowed this RN to search belongings and purse after explaining hospital policy. Upon further investigation, patient was found to have 7 Oxycodone pills in her bag, Tylenol PM, as well as Colace and Compazine. sales administration specialist Della Munoz made aware, came to overflow and witnessed count in front of patient, signed off on belongings envelope. Pharmacist Di Borges also witnessed sales administration specialist and this RN count the pills in front of the patient, security also present to ensure that procedure was followed correctly. While changing linens at 1999, Oneida Turk (tech) found 3 more Tylenol PM. This RN ordered the bed to be stripped, no additional pills found. Patient's medications were verified by this RN, who called Dr. Dominguez to change order in computer changed to reflect correct order at 2042. Patient medicated appropriately per JUL, is calm, pleasant, currently resting in bed in no acute distress. Vital signs stable, plan of care ongoing.
[2023-01-30] MEDS: oxyCODONE HCl Immed Release 5 MG TABLET 20 MG PO ×5 (00:18→16:33)
[2023-01-30 06:00] VITALS: BP 116/84; PULSE 80; RESP 18; TEMP 36.5; O2SAT 98
[2023-01-30] MEDS: Baclofen 20 MG TABLET PO ×2 (08:10→15:16)
--- NOTE | 2023-01-30 13:31 | PC.NURSE ---
continues to have pain, assisted to bathroom. hopefully she will be going to STR at somepoint today
[2023-01-30 14:45] VITALS: BP 124/78; PULSE 74; RESP 18; TEMP 36.6; O2SAT 100
--- NOTE | 2023-01-30 15:58 | MHC.CM.ED ---
Patient remains in ER overflow. MDS was sent to [facility] on 01/29 at 1pm. MDS is typically reviewed by Myrna or Terri. Both are out of the office today. Reviewed by Crissy and Sarai. [facility] Patient can leave at 6pm. [facility] booked. [facility] with chart. Patient, Rica VICENTE and Toya PIRES aware. Continue to [facility] for d/c needs.
[2023-01-30] MEDS: Rivaroxaban 20 MG TABLET PO (16:32)
--- NOTE | 2023-01-30 16:33 | MHC.EDTECH ---
Assisted pt to and from bathroom with wheelchair.
== END 2023-01-30 19:12 | disposition skilled nursing facility (03) ==
PROVIDERS: Registered Nurse Emergency; Emergency Provider Emergency Medicine; PCP Family Medicine
DX: M54.50 Low back pain, unspecified (principal); K08.89 Other specified disorders of teeth and supporting structures; R26.81 Unsteadiness on feet; Z20.822 Contact with and (suspected) exposure to COVID-19; Z20.828 Contact with and (suspected) exposure to other viral communicable diseases; Z79.899 Other long term (current) drug therapy
CPT/HCPCS: 87635; 97162; 99285